=== PATIENT | male | born 1935 | race Caucasian/White ===

== ENCOUNTER 2019-04-24 17:38 | Emergency (ER) | payer MEDICARE ==
[~2019-04-24] VITALS: Ht 172.7 cm; Wt 80.0 kg
[~2019-04-24 17:38] MED LIST: GABAPENTIN600 MG PO; IRON; MECLIZINE25 MG PO; METHYLPHENID20 MG PO; PRAVASTATIN40 MG PO; TAMSULOSIN0.4 MG PO; ZETIA10 MG PO
[2019-04-24] MEDS ORDERED: KEFLEX500 M1 PO (19:17)
[2019-04-24] MEDS ORDERED: BACTRIM DS1 TAB PO (19:17)
[2019-04-24] MEDS ORDERED: BACTROBAN TOP (19:17)
[2019-04-24 19:30] VITALS: BP 124/87
== END 2019-04-24 19:30 | disposition home or self-care (01) ==
LOC: ED 17:38
PROC: 0HBRXZZ Excision of Toe Nail, External Approach (ICD-10-PCS; principal; 2019-04-24)
DX: L60.0 Ingrowing nail (principal); L03.032 Cellulitis of left toe; G60.9 Hereditary and idiopathic neuropathy, unspecified; B95.62 Methicillin resistant Staphylococcus aureus infection as the cause of diseases classified elsewhere

== ENCOUNTER 2019-04-25 15:20 | Emergency (ER) | payer MEDICARE ==
[~2019-04-25] VITALS: Ht 172.7 cm; Wt 70.0 kg
[~2019-04-25 15:20] MED LIST changes: +BACTRIM DS1 TAB PO; +BACTROBAN TOP; +KEFLEX500 M1 PO
[2019-04-25 16:17] VITALS: BP 140/79
== END 2019-04-25 16:25 | disposition home or self-care (01) ==
LOC: ED 15:20
DX: L08.9 Local infection of the skin and subcutaneous tissue, unspecified (principal); L60.0 Ingrowing nail